=== PATIENT | male | born 1960 | race African-American/Black ===

== ENCOUNTER 2018-03-07 04:43 | Inpatient (IN) | payer OTHER ==
[~2018-03-07] VITALS: Ht 175.3 cm; Wt 69.4 kg
[2018-03-07] VITALS (9 sets, daily range): BP systolic 109–152; BP diastolic 61–85
[2018-03-07] MEDS ORDERED: ONDANSETRON HCL 4MG/2ML VIAL IV STA (04:51)
[2018-03-07] MEDS ORDERED: SODIUM CHLORIDE 0.9% 1,000 ML IV ONE (04:51)
[2018-03-07] MEDS ORDERED: LORAZEPAM 2MG/ML CPJ ONE (04:58)
[2018-03-07] MEDS ORDERED: MAGNESIUM 2 G PREMIX 50 ML IV ONE (05:00)
[2018-03-07] MEDS ORDERED: LORAZEPAM 2MG/ML CPJ IV ONE (05:00)
[2018-03-07] MEDS ORDERED: LEVETIRACETAM 500MG PREMIX 100 ML IV ONE (05:00)
[2018-03-07] MEDS ORDERED: SODIUM CHLORIDE 0.9% 1,000 ML IV SCH (05:30)
[2018-03-07 05:57] LABS: BASOPHILS % 0.4 % (0.0-2.0); EOSINOPHILS % 0.4 % (0.0-5.0); HEMATOCRIT. 39.1 % (42.0-52.0); HEMOGLOBIN. 12.5 g/dL (14.0-18.0); LYMPHOCYTES % 18.3 % (20.0-50.0); MEAN CORPUSCULAR HEMOGLOBIN 29.4 pg (28.0-32.0); MEAN CORPUSCULAR VOLUME 91.8 fL (80.0-94.0); MEAN PLATELET VOLUME 8.7 fl (7.4-10.4); MONOCYTES % 5.3 % (2.0-8.0); NEUTROPHILS % 75.6 % (40.0-76.0); PLATELET 293 x1000/uL (130-400); RED BLOOD CELL COUNT 4.26 mill/uL (4.7-6.1); RED CELL DISTRIBUTION WIDTH 12.4 % (11.6-14.6)
[2018-03-07 06:09] LABS: CHLORIDE 106 mEq/L (98-107)
[2018-03-07 06:13] LABS: ETHANOL BLOOD < 10 mg/dL
[2018-03-07] MEDS ORDERED: KEPP500 PO (11:49)
[2018-03-07] MEDS ORDERED: TERA2CAP4 PO (11:49)
[2018-03-07] MEDS ORDERED: ATOR20TA PO (11:49)
[2018-03-07] MEDS: MULTIVITAMINS,THER W-MINERALS TABLET PO SCH (13:13)
[2018-03-07] MEDS: THIAMINE HCL 100MG TABLET PO SCH (13:13)
[2018-03-07] MEDS: FOLIC ACID 1MG TABLET PO SCH (13:13)
[2018-03-07] MEDS ORDERED: IPRATROPIUM/ALBUTEROL 0.5-3(2.5)MG/3ML NEB INH PRN (19:00)
[2018-03-07] MEDS ORDERED: ACETAMINOPHEN 325MG TABLET PO PRN (19:00)
[2018-03-07] MEDS ORDERED: DOCUSATE SODIUM 100MG CAPSULE PO PRN (19:00)
[2018-03-07] MEDS ORDERED: LORAZEPAM 2MG/ML CPJ IV PRN (19:00)
[2018-03-07] MEDS ORDERED: ONDANSETRON HCL 4MG/2ML VIAL IV PRN (19:00)
[2018-03-07] MEDS ORDERED: ONDANSETRON 4MG ODT PO PRN (19:15)
[2018-03-07 20:04] LABS: PHOSPHORUS 2.7 mg/dL (2.5-4.9)
[2018-03-07 20:06] LABS: LDL CHOLESTEROL 54 mg/dL (5-100)
[2018-03-07 20:07] LABS: CREATINE KINASE 293 IU/L (39-308); HDL CHOLESTEROL 47 mg/dL (40-59)
[2018-03-07] MEDS: LEVETIRACETAM 250MG TABLET PO SCH (21:30)
[2018-03-07] MEDS: DEXT 5%/0.45% NACL 1000ML 1,000 ML IV SCH (21:30)
[2018-03-08] VITALS (14 sets, daily range): BP systolic 108–150; BP diastolic 60–90
[2018-03-08 00:37] LABS: *AMPHETAMINES SCREEN URINE NEGATIVE (NEGATIVE); *BARBITURATES SCREEN URINE NEGATIVE (NEGATIVE); *BENZODIAZEPINES SCREEN URINE NEGATIVE (NEGATIVE)
[2018-03-08 00:38] LABS: *COCAINE SCREEN URINE NEGATIVE (NEGATIVE); CANNABINOID URINE SCREEN PRESUMTIVE POSITIVE (NEGATIVE); METHADONE URINE SCREEN NEGATIVE (NEGATIVE); OPIATES URINE SCREEN NEGATIVE (NEGATIVE); PHENCYCLIDINE URINE SCREEN NEGATIVE (NEGATIVE)
[2018-03-08 09:23] LABS: BASOPHILS % 0.5 % (0.0-2.0); HEMATOCRIT. 38.9 % (42.0-52.0); HEMOGLOBIN. 12.8 g/dL (14.0-18.0); LYMPHOCYTES % 22.4 % (20.0-50.0); MEAN CORPUSCULAR HEMOGLOBIN 29.1 pg (28.0-32.0); MEAN CORPUSCULAR VOLUME 88.7 fL (80.0-94.0); MEAN PLATELET VOLUME 8.6 fl (7.4-10.4); MONOCYTES % 5.4 % (2.0-8.0); NEUTROPHILS % 70.7 % (40.0-76.0); PLATELET 236 x1000/uL (130-400); RED BLOOD CELL COUNT 4.38 mill/uL (4.7-6.1); RED CELL DISTRIBUTION WIDTH 12.2 % (11.6-14.6)
[2018-03-08 09:28] LABS: CHLORIDE 108 mEq/L (98-107)
[2018-03-08] MEDS: FOLIC ACID 1MG TABLET PO SCH (09:42)
[2018-03-08] MEDS: THIAMINE HCL 100MG TABLET PO SCH (09:42)
[2018-03-08] MEDS: DEXT 5%/0.45% NACL 1000ML 1,000 ML IV SCH (09:43)
[2018-03-08] MEDS: MULTIVITAMINS,THER W-MINERALS TABLET PO SCH (09:43)
[2018-03-08] MEDS: LEVETIRACETAM 250MG TABLET PO SCH (09:43)
[2018-03-11 04:11] LABS: HIV SCREEN 4G Non Reactive (Non Reactive)
== END 2018-03-08 20:26 | disposition short-term general hospital (02) | DRG 101 ==
LOC: ER 04:59 → 5EST 05:31 → EDBEDREQSVC 05:33 → EDBEDREQ 05:33 → ENRESERV 08:38
PROVIDERS: ADMIT Internal Medicine; ATTEND Internal Medicine
DX: G40.401 Other generalized epilepsy and epileptic syndromes, not intractable, with status epilepticus (principal); D72.829 Elevated white blood cell count, unspecified; F10.10 Alcohol abuse, uncomplicated; E87.8 Other disorders of electrolyte and fluid balance, not elsewhere classified; Z79.899 Other long term (current) drug therapy
CPT/HCPCS: 36415; 70450; 70551; 71045; 80048; 80053; 80061; 80305; 82542; 82550; 82962; 83036; 83735; 84100; 84443; 84484; 85025; 87186; 93005; 96374; 99285; G0482; J1953; J2060; J2405; J3490; J7030; J7040